=== PATIENT | male | born 1995 | race Caucasian/White ===

== ENCOUNTER 2023-03-31 13:08 | Emergency (ER) | payer BC, OTHER ==
[2023-03-31 14:21] LABS: Bilirubin Neg (Negative); Blood, Urine Negative (Negative); Clarity Clear (Clear); Glucose, Urine (Dipstick) Normal (Negative); Ketone, Urine Negative (Negative); Leukocyte Negative (Negative); Nitrite Negative (Negative); Protein, Urine (Dipstick) Negative (Neg-Trace); Urobilinogen Normal mg/dL (Less than 2); pH, Urine 6.5 (5.0-9.0)
== END 2023-03-31 14:56 | disposition home or self-care (01) ==
LOC: CSHERS 13:08
DX: N50.812 Left testicular pain (principal)
CPT/HCPCS: 76870; 81003; 87086; 93976